=== PATIENT | male | born 1985 | race Hispanic/Latino ===

== ENCOUNTER 2020-09-30 16:19 | Emergency (ER) | payer OTHER ==
[2020-09-30 18:35] VITALS: BP 137/84
[2020-09-30] MEDS ORDERED: FLUORESCEIN 1 MG STRIP OP ONE (20:10)
[2020-09-30] MEDS ORDERED: TETRACAINE 0.5% OPHTH SOLN 4ML OU PRN (20:10)
--- NOTE | 2020-09-30 20:58 | Emergency Department Report ---
ED Eye Problem HPI - General Chief complaint: Eye Problems Stated complaint: LT EYE Source: patient Mode of arrival: Ambulatory Limitations: No Limitations - History of Present Illness Initial comments: Patient is a 35-year-old white male with past medical history hypertension, anxiety, panic attacks, and benzodiazepine generated seizures who presents to the ED with complaint of acute onset persistent left eye pain after some debris entered into his left eye about 10 hours ago at work. Patient states that the left eye pain has been persistent and constant and worse and that the pain is worse whenever he blinks his left eyelids, and thinks that there may still be some foreign bodies in the left eye. Patient states that he is up-to-date with all his tetanus vaccinations. Patient denies dizziness, syncope, change in vision, headache, nausea and vomiting, traumatic injury, shortness of breath, fever and chills. MD chief complaint: eye pain (left eye pain), eye redness (left eye), eye injury (left eye), foreign body (sensation) -: Sudden, hour(s) (10) Onset Description: sudden, unknown Location: left eye Place: work If Injury: other (debris entered into left eye) Eye Symptoms: redness, pain, foreign body sensation, discharge Severity: severe Severity scale (0 -10): 7 If Pain, Quality: sharp, aching Consistency: constant Context: injury (foreign body entered left eye) Associated Symptoms: none Treatments Prior to Arrival: irrigated eye - Related Data Patient Tetanus UTD: Yes Previous Rx's Medication Instructions Recorded Last Taken Type Ciprofloxacin HCl [Ciprofloxacin 500 mg PO Q12H #20 tab 03/09/18 Unknown Rx TAB] Ibuprofen [Motrin] 800 mg PO Q8HR PRN #30 tablet 09/30/20 Unknown Rx Tobramycin 1 drop OP Q4H #5 ml 09/30/20 Unknown Rx Allergies Allergy/AdvReac Type Severity Reaction Status Date / Time No Known Allergies Allergy Verified 01/31/13 05:33 ED Review of Systems ROS: Stated complaint: LT EYE Other details as noted in HPI Constitutional: denies: chills, fever Eyes: eye pain (Left thigh pain), eye discharge (Left eye purulent discharge), other (Left eye foreign body sensation). denies: vision change ENT: denies: ear pain, throat pain Respiratory: denies: cough, shortness of breath, wheezing Cardiovascular: denies: chest pain, palpitations Endocrine: no symptoms reported Gastrointestinal: denies: abdominal pain, nausea, diarrhea Genitourinary: denies: urgency, dysuria Musculoskeletal: denies: back pain, joint swelling, arthralgia Skin: denies: rash, lesions Neurological: denies: headache, weakness, paresthesias Psychiatric: denies: anxiety, depression Hematological/Lymphatic: denies: easy bleeding, easy bruising ED Past Medical Hx - Past Medical History Previous Medical History?: Yes Hx Hypertension: Yes 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) Hx Psychiatric Treatment: Yes (anxiety, panic attacks) Additional medical history: Vivar's Palsy, heart murmur,HEART PALPITATIONS - Surgical History Past Surgical History?: Yes Additional Surgical History: tonsillectomy - Social History Smoking Status: Never Smoker Substance Use Type: None - Medications Home Medications: Home Medications Medication Instructions Recorded Confirmed Last Taken Type Ciprofloxacin HCl [Ciprofloxacin 500 mg PO Q12H #20 tab 03/09/18 Unknown Rx TAB] Ibuprofen [Motrin] 800 mg PO Q8HR PRN #30 tablet 09/30/20 Unknown Rx Tobramycin 1 drop OP Q4H #5 ml 09/30/20 Unknown Rx ED Physical Exam - General Limitations: No Limitations General appearance: alert, in no apparent distress, anxious - Head Head exam: Present: atraumatic, normocephalic, normal inspection - Eye Eye exam: Present: PERRL, EOMI, other (Erythematous left conjunctiva with purulent discharge; small left lateral conjunctival abrasion with Kidd lamp and fluorescein dye test) Pupils: Present: normal accommodation - ENT ENT exam: Present: normal exam, normal orophraynx, mucous membranes moist, TM's normal bilaterally, normal external ear exam - Neck Neck exam: Present: normal inspection, full ROM - Respiratory Respiratory exam: Present: normal lung sounds bilaterally. Absent: respiratory distress, wheezes, rales, rhonchi, chest wall tenderness, accessory muscle use, prolonged expiratory - Cardiovascular Cardiovascular Exam: Present: regular rate, normal rhythm, normal heart sounds. Absent: systolic murmur, diastolic murmur, rubs, gallop - GI/Abdominal GI/Abdominal exam: Present: soft, normal bowel sounds. Absent: distended, tenderness, guarding, hyperactive bowel sounds, hypoactive bowel sounds, organomegaly - Extremities Exam Extremities exam: Present: normal inspection, full ROM, normal capillary refill - Back Exam Back exam: Present: normal inspection, full ROM. Absent: tenderness, CVA tenderness (R), CVA tenderness (L), muscle spasm, paraspinal tenderness, vertebral tenderness, rash noted - Neurological Exam Neurological exam: Present: alert, oriented X3, CN II-XII intact, normal gait, reflexes normal - Psychiatric Psychiatric exam: Present: normal affect, normal mood - Skin Skin exam: Present: warm, dry, intact, normal color. Absent: rash ED Course Vital Signs 09/30/20 18:31 Temperature 98.1 F Pulse Rate 61 Respiratory 12 Rate Blood Pressure 137/84 O2 Sat by Pulse 100 Oximetry ED Medical Decision Making - Medical Decision Making This is a 35-year-old white male with past medical history hypertension, anxiety, panic attacks, and benzodiazepine generated seizures who presents to the ED with complaint of acute onset persistent left eye pain after some debris entered into his left eye about 10 hours ago at work. Patient states that the left eye pain has been persistent and constant and worse and that the pain is worse whenever he blinks his left eyelids, and thinks that there may still be some foreign bodies in the left eye. Patient states that he is up-to-date with all his tetanus vaccinations. In the ED, patient is alert and oriented x3 and is not in any distress. Patient visual acuity is normal at 20/30 bilaterally. The Kidd lamp exam of the left eye revealed left lateral small conjunctival abrasion with fluorescein's dye. Patient was therefore discharged home on medication including antibiotic eyedrops and advised to follow-up with his primary care physician in 5 to 7 days for reevaluation. Patient is advised return to the ED immediately if symptoms get worse. - Differential Diagnosis Left eye injury, corneal abrasion, conjunctival abrasion, conjunctivitis Critical care attestation.: If time is entered above; I have spent that time in minutes in the direct care of this critically ill patient, excluding procedure time. ED Disposition Clinical Impression: Acute conjunctivitis of left eye Qualifiers: Acute conjunctivitis type: bacterial Qualified Code(s): H10.32 - Unspecified acute conjunctivitis, left eye Left eye injury Qualifiers: Encounter type: initial encounter Qualified Code(s): S05.92XA - Unspecified injury of left eye and orbit, initial encounter Abrasion of left conjunctiva with infection Qualifiers: Encounter type: initial encounter Qualified Code(s): S05.02XA - Injury of conjunctiva and corneal abrasion without foreign body, left eye, initial enco unter; H44.002 - Unspecified purulent endophthalmitis, left eye Disposition: TO HOME OR SELFCARE Is pt being admited?: No Does the pt Need Aspirin: No Condition: Stable Instructions: Bacterial Conjunctivitis, Adult, [id number], Corneal Abrasion, [id number] Additional Instructions: Apply the medication to the affected eye as advised, drink plenty of fluids, take pain medication as needed with food, and follow-up with your primary care physician in 5 to 7 days for reevaluation. Return to the ED immediately if symptoms get worse. Consider following up with an rubber stamp assembler Dr. Rodriguez for further evaluation. Prescriptions: Ibuprofen [Motrin] 800 mg PO Q8HR PRN #30 tablet PRN Reason: Pain , Severe (7-10) Tobramycin 1 drop OP Q4H #5 ml Referrals: CLARITZA RODRIGUEZ MD [Staff Physician] - 3-5 Days [facility] [Provider Group] - 3-5 Days Forms: Work/School Release Form(ED) Time of Disposition: 21:02 Print Language: KHMER
== END 2020-09-30 21:15 | disposition home or self-care (01) ==
LOC: ED 16:19
DX: S05.02XA Injury of conjunctiva and corneal abrasion without foreign body, left eye, initial encounter (principal); H10.32 Unspecified acute conjunctivitis, left eye; I10 Essential (primary) hypertension; R56.9 Unspecified convulsions; F41.9 Anxiety disorder, unspecified; Z90.89 Acquired absence of other organs; Z79.2 Long term (current) use of antibiotics; X58.XXXA Exposure to other specified factors, initial encounter; Y93.89 Activity, other specified; Y92.89 Other specified places as the place of occurrence of the external cause; Y99.8 Other external cause status
CPT/HCPCS: 99284